=== PATIENT | male | born 2000 | race Caucasian/White ===

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

== ENCOUNTER 2023-09-01 03:27 | Emergency (ER) | payer SELFPAY ==
[~2023-09-01] VITALS: Ht 172.7 cm; Wt 59.1 kg
[~2023-09-01 03:27] MED LIST changes: +NORCO 325 MG-51 TAB PO; +ZOFRAN ODT4 MG PO
[2023-09-01 03:33] VITALS: BP 161/84; PULSE 91; TEMP 98.4
[2023-09-01] MEDS ORDERED: metroNIDAZOLE 250 MG TAB PO ONE (06:30)
[2023-09-01] MEDS ORDERED: Prochlorperazine 10 MG TAB PO ONE (06:30)
[2023-09-01] MEDS ORDERED: Azithromycin 250 MG TAB PO ONE (06:30)
== END 2023-09-01 04:43 | disposition home or self-care (01) ==
LOC: COL.ER 03:27
DX: T76.21XA Adult sexual abuse, suspected, initial encounter (principal)